=== PATIENT | female | born 1950 | race Caucasian/White ===

== ENCOUNTER 2023-12-20 17:42 | Emergency (ER) | payer MEDICARE, BC ==
[~2023-12-20] VITALS: Ht 167.6 cm; Wt 64.0 kg
[2023-12-20 17:47] VITALS: O2SAT 100
[2023-12-20] MEDS: LIDOCAINE HCL/EPINEPHRINE 1%-EPI 1:100,000 20ML VIAL INFIL ONE (18:37)
[2023-12-20] MEDS: TETANUS, DIPHTHERIA, PERTUSSIS VAC/PF 0.5ML (>10YR OLD) IM ONE (18:37)
[2023-12-20 20:19] VITALS: TEMP 36.61404
[2023-12-21 03:28] VITALS: BP 145/79; PULSE 82; RESP 18; O2SAT 95
== END 2023-12-21 03:50 | disposition home or self-care (01) ==
LOC: ER 17:42
DX: S01.112A Laceration without foreign body of left eyelid and periocular area, initial encounter (principal); S09.90XA Unspecified injury of head, initial encounter; W01.0XXA Fall on same level from slipping, tripping and stumbling without subsequent striking against object, initial encounter; Y93.89 Activity, other specified; Y92.89 Other specified places as the place of occurrence of the external cause; Y99.8 Other external cause status
CPT/HCPCS: 99285; 70450; 72125; 90715; 12013; 90471; 82962; J3490